=== PATIENT | female | born 1940 | race Hispanic/Latino ===

== ENCOUNTER 2019-06-04 09:04 | Outpatient (CLI) | payer MEDICARE ==
--- NOTE | 2019-06-04 15:09 | Mammography Report ---
BONE DEXA CLINICAL: Postmenopausal. COMPARISON: 06/01/2012 TECHNIQUE: 2 site bone DEXA performed on an Hologic scanner. FINDINGS: The average BMD of the lumbar spine L1-L4 is 1.064g/cm squared with a T score of +0.2 and a Z score o f +2.8. This compares to 1.004g/cm squared on the last exam and represents a +5.9 percent change from the [previous baseline]. The average BMD of the left hip is 0.763 g/cm squared with a T score of -1.5and a Z score of +0.5. Th is compares to 0.807 g/cm squared on the last exam and represents a -5.5 percent change from the [pre vious baseline]. IMPRESSION: 1. WHO classification: Normal with average fracture risk based on spine measurements. 2. WHO classification Osteopenia with increased fracture risk based on left hip measurements. RECOMMENDATION: Clinical correlation and routine screening. Definitions: BMD equal bone mineral density T score = BMD related to peak bone mass of young adult ([place] expressed an standard deviation) Z score = age-matched BMD expressed in SD World health organization (WHO) diagnostic criteria Normal T score greater than equal to 1 standard deviation Osteopenia T score between -1 and -2.4 standard deviation Osteoporosis T score -2.5 standard deviation or below. Note: BMD is not the only risk factor for fracture; also consider factors such as the patient's age, risk of falling, previous osteoporotic fracture, family history of osteoporotic fractures, current sm oker and low body weight. Z scores are not calculated if greater than 80 years of age. Signer Name: Rocky Snowden MD Signed: 06/04/2019 3:05 PM Workstation Name: [id number]
== END 2019-06-04 09:05 | disposition home or self-care (01) ==
LOC: MAMMO 09:04
PROVIDERS: ATTEND Family Medicine
DX: M85.88 Other specified disorders of bone density and structure, other site (principal); Z78.0 Asymptomatic menopausal state
CPT/HCPCS: 77080

== ENCOUNTER 2021-05-31 06:39 | Day surgery (SDC) | payer MEDICARE ==
[2021-05-31 07:18] LABS: Basophils % (Auto) 0.2 % (0.0-1.8); Eosinophils # (Auto) 0.2 K/mm3 (0.0-0.4); Eosinophils % (Auto) 2.8 % (0.0-4.3); Hematocrit 38.5 % (30.3-42.9); Hemoglobin 13.3 gm/dl (10.1-14.3); Lymphocytes # (Auto) 1.8 K/mm3 (1.2-5.4); Lymphocytes % (Auto) 29.4 % (13.4-35.0); Mean Corpuscular HGB Conc 35 % (30-34); Mean Corpuscular Volume 95 fl (79-97); Monocytes # (Auto) 0.5 K/mm3 (0.0-0.8); Monocytes % (Auto) 7.2 % (0.0-7.3); Platelet Count 215 K/mm3 (140-440); Red Blood Count 4.07 M/mm3 (3.65-5.03); Red Cell Distribution Width 13.6 % (13.2-15.2)
[2021-05-31 07:29] LABS: INR 0.91 (0.87-1.13)
[2021-05-31] MEDS ORDERED: ASPIRIN EC 325 MG TAB PO SCH (07:30)
[2021-05-31 07:31] LABS: Blood Urea Nitrogen 15 mg/dL (7-17); Calcium 10.6 mg/dL (8.4-10.2); Hemolysis Index 1
[2021-05-31 07:34] LABS: BUN/Creatinine Ratio 21
[2021-05-31] MEDS ORDERED: SODIUM CHLORIDE 0.9% 500 ML 500 ML IV SCH (08:00)
[2021-05-31] MEDS ORDERED: HEPARIN 10,000 UNITS/10 ML VIAL ONE (08:11)
[2021-05-31] MEDS ORDERED: MIDAZOLAM 2 MG/2 ML INJ ONE (08:11)
[2021-05-31] MEDS ORDERED: HEPARIN/NS 5000 UNIT/500ML 1,000 ML IR ONE (08:11)
[2021-05-31] MEDS ORDERED: fentaNYL 100 MCG/2 ML INJ ONE (08:12)
[2021-05-31] MEDS ORDERED: NITROGLYCERIN SYRINGE 3 ML ONE (08:12)
[2021-05-31] MEDS ORDERED: VERAPAMIL 5 MG/2 ML INJ ONE (08:12)
[2021-05-31] MEDS ORDERED: methylPREDNISolone Sod Succinate 125 MG/2 ML INJ IV SCH (08:30)
[2021-05-31] MEDS ORDERED: diphenhydrAMINE 50 MG/ML VIAL IV SCH (08:30)
[2021-05-31] MEDS ORDERED: FAMOTIDINE 20 MG/2 ML INJ IV SCH (08:30)
[2021-05-31] MEDS: LIDOCAINE (2%) 20 MG/1 ML VIAL 20 ML MDV INFILTRATI ONE ×2 (08:47→08:51)
[2021-05-31] MEDS ORDERED: LIDOCAINE (2%) 20 MG/1 ML VIAL 20 ML MDV INFILTRATI ONE (08:57)
--- NOTE | 2021-05-31 09:00 | Short Stay Summary ---
Short Stay Documentation Date of service: 05/31/21 - History Principal diagnosis: Chest Pain H&P: obtained from office Past Medical History: hypertension, hyperlipidemia, hypothyroidism, other (severe s/p TAVR) Past Surgical History: valve replacement (TAVR) Social history: no smoking, no alcohol abuse - Allergies and Medications Current Medications: Allergies shellfish derived Allergy (Severe, Verified 05/31/21 07:03) Swelling Penicillins Allergy (Intermediate, Verified 05/31/21 07:03) Rash Home Medications Medication Instructions Recorded Confirmed Last Taken Type Ascorbic Acid/Ascorbate Sodium 1 tab PO DAILY 05/31/21 05/31/21 05/30/21 History [Vit C-Inga Hips 500 mg Chew Tb] 1 tab Aspirin EC [Halfprin EC] 81 mg PO DAILY 05/31/21 05/31/21 05/30/21 History 81 mg Calcium Citrate/Vitamin D3 1 tab PO DAILY 05/31/21 05/31/21 05/30/21 History [Calcium Citrate - Vit D Tablet] 1 tab Levothyroxine [Synthroid] 75 mcg PO DAILY 05/31/21 05/31/21 05/30/21 History 75 mcg Lisinopril [Zestril] 5 mg PO DAILY 05/31/21 05/31/21 05/31/21 06:30 History 5 mg Loratadine [Claritin] 10 mg PO PRN PRN 05/31/21 05/31/21 Unknown History Meclizine [Antivert] 12.5 mg PO TID 05/31/21 05/31/21 05/30/21 History 12.5mg Metoprolol Xl [Metoprolol 50 mg PO DAILY 05/31/21 05/31/21 05/31/21 06:30 History SUCCINATE ER TAB] 50 mg Multivit-Min/FA/Lycopen/Lutein 1 tab PO DAILY 05/31/21 05/31/21 05/30/21 History [Centrum Silver Tablet] 1 tab Omeprazole 40 mg PO DAILY 05/31/21 05/31/21 05/30/21 History 40 mg Polyethylene Glycol 400 [Blink 1 drop INTRAOCULA BID 05/31/21 05/31/21 05/30/21 History Tears] 1 drop Simvastatin 80 mg PO HS 05/31/21 05/31/21 05/30/21 History 80 mg Ubidecarenone [Coq-10] 300 mg PO DAILY 05/31/21 05/31/21 05/30/21 History 300 mg Active Medications Aspirin (Aspirin Ec 325 Mg Tab) 325 mg PO ONCE ODALIS Stop: 05/31/21 17:00 Last Admin: 05/31/21 07:25 Dose: 325 mg Documented by: Diphenhydramine HCl (Diphenhydramine 50 Mg/Ml Vial) 25 mg IV ONCE ODALIS Stop: 05/31/21 11:00 Last Admin: 05/31/21 08:25 Dose: 25 mg Documented by: Famotidine (Famotidine 20 Mg/2 Ml Inj) 20 mg IV ONCE ODALIS Stop: 05/31/21 13:00 Last Admin: 05/31/21 08:26 Dose: 20 mg Documented by: Sodium Chloride (Nacl 0.9% 500 Ml) 500 mls @ 50 mls/hr IV DIRECT ODALIS Stop: 05/31/21 17:59 Last Admin: 05/31/21 07:27 Dose: 50 mls/hr Documented by: Methylprednisolone Sodium Succinate (Methylprednisolone Sod Succinate 125 Mg/2 Ml Inj) 125 mg IV ONCE ODALIS Stop: 05/31/21 11:00 Last Admin: 05/31/21 08:25 Dose: 125 mg Documented by: - Physical exam General appearance: no acute distress Integumentary: no rash, other (Groin site - clean/dry/intact, no evidence of bleeding or hematoma) HEENT: Atraumatic, EOMI Lungs: Clear to auscultation Heart: Normal S1, Normal S2, No murmurs Gastrointestinal: normal Extremities: pulses intact, No edema Neurological: Normal speech, Normal tone, Sensation intact - Brief post op/procedure progress note Date of procedure: 05/31/21 Pre-op diagnosis: Chest Pain Post-op diagnosis: same Surgeon: ALVARADO HARTLEY Estimated blood loss: minimal Pathology: none Condition: stable - Hospital course Hospital course: Pt presented for elective LHC, which revealed no evidence of significant epicardial coronary disease. Pt tolerated well and is currently stable. Will add Ranexa 500mg BID to home regimen. Follow-up with Dr. Yeni Hartley in 1-2 weeks ([phone]). - Disposition Condition at discharge: Good Disposition: 01 HOME / SELF CARE / HOMELESS - Discharge Diagnoses (1) Microvascular angina Status: Chronic Short Stay Discharge Plan Activity: advance as tolerated Diet: low fat, low cholesterol, low salt Wound: per your surgeon's advice Follow up with: ALVARADO HARTLEY MD [Staff Physician] - 14 Days DINA RO MD [Primary Care Provider] - 7 Days (Follow-up with Dr. Yeni Hartley on 07/23/2021 @ 3:30pm ([phone]). ) Prescriptions: Ranolazine ER [Ranexa ER] 500 mg PO BID #60 tablet
--- NOTE | 2021-05-31 09:30 | Cardiac Catherization Report ---
DATE OF PROCEDURE: 05/31/2021 REFERRING PHYSICIAN: Roger Rivera MD PROCEDURE: Left heart catheterization with coronary angiography. INDICATION FOR PROCEDURE: The patient is a very pleasant 80-year-old female, well known to me with history of TAVR, presents with recurrent chest pain, abnormal stress test, referred for left heart catheterization. Risks, benefits, potential alternatives explained at length prior to obtaining informed consent. PROCEDURE IN DETAIL: The patient was brought to the electroplating laborer in a postabsorptive state, prepped in sterile fashion. We were not able to access the right wrist. We used the right groin. A 5 Mongolian sheath placed with modified Seldinger technique after anesthetized with lidocaine. A JL3.5 catheter used to engage the left main. No dampening or ventricularization. Cineangiography performed in multiple projections. JR4 catheter used to engage the right coronary. No dampening or ventricularization. Cineangiography performed in all projections. I did not cross the aortic valve due to presence of TAVR and recent echocardiogram revealing normal bioprosthetic aortic valve performance. I directly supervised the administration of moderate sedation with fentanyl and Versed from 8:40 a.m. to 9:10 a.m. No immediate complications identified. Moderate sedation. DATA: Aortic pressure is 148/70. The patient remained in normal sinus rhythm throughout the procedure. CORONARY ANATOMY: Right dominant system. Right coronary is a moderate-sized vessel, courses AV groove, distally bifurcates in the posterior and posterolateral branches. No discrete stenoses noted. Left main without significant disease, bifurcates into left anterior descending and left circumflex. LAD is a moderate-sized vessel, courses anterior intraventricular groove, wraps around the apex, no significant disease. Left circumflex, moderate-sized vessel, courses AV groove. No significant disease. Scattered luminal irregularities throughout, but no obstructive disease identified. CONCLUSIONS: 1. No angiographic evidence of significant epicardial coronary disease in this right dominant system. 2. Mild systemic arterial hypertension. At this point, we will continue optimal medical therapy, add Ranexa for questionable microvascular angina. Discussed with her daughter, Lissett, via telephone. Stable overall cardiac status. Follow up with me in the office. Standard groin care. TID: [id number] RECEIPT: [id number] SBM/CECILIA
[2021-05-31] MEDS ORDERED: traMADol 50 MG TAB PO PRN (10:00)
[2021-05-31] MEDS ORDERED: HYDROcodone/ACETAMINOPHEN 5-325 MG TAB PO PRN (10:00)
[2021-05-31 13:30] VITALS: BP 152/78
[2021-05-31] MEDS ORDERED: RANOLAZINE ER 500 MG TAB 12HR PO SCH (22:00)
--- NOTE | 2021-06-01 10:00 | Electrocardiograph Report ---
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
== END 2021-05-31 14:11 | disposition home or self-care (01) ==
LOC: CATHLABREC 06:39
PROVIDERS: ATTEND Internal Medicine
DX: R07.9 Chest pain, unspecified (principal); I35.0 Nonrheumatic aortic (valve) stenosis; I11.0 Hypertensive heart disease with heart failure; I50.9 Heart failure, unspecified; E78.00 Pure hypercholesterolemia, unspecified; E03.9 Hypothyroidism, unspecified; M19.90 Unspecified osteoarthritis, unspecified site; Z95.2 Presence of prosthetic heart valve; Z79.82 Long term (current) use of aspirin; Z79.899 Other long term (current) drug therapy; Z88.0 Allergy status to penicillin; Z91.013 Allergy to seafood; Z98.890 Other specified postprocedural states
CPT/HCPCS: 36415; 80048; 85025; 85610; 85730; 93005; 93454; 96374; 96375; 99156; 99157; C1894; J1200; J1644; J2250; J2930; J3010; J7040; Q9967

== ENCOUNTER 2021-06-07 10:26 | Outpatient (CLI) | payer MEDICARE ==
--- NOTE | 2021-06-07 12:03 | Mammography Report ---
DEXA BONE DENSITY SCAN INDICATION / CLINICAL INFORMATION: OSTEOPENIA OF LEFT HIP. 80 years Female COMPARISON: DEXA scan dated 06/04/2019. LUMBAR SPINE, L1-L4: - Bone mineral density (BMD) = 1.053 g/cm2. - T-score = 0.1 - Z-score = 2.8 Change (%) since most recent prior (if available): -1.0 LEFT HIP, NECK : - Bone mineral density (BMD) = 0.628 g/cm2. - T-score = -2.0 - Z-score = 0.3 Change (%) since most recent prior (if available): +1.9 10-YEAR FRACTURE RISK (FRAX) (%) based on LEFT FEMUR - Major Osteoporotic Fracture / Hip Fracture: 15% / 4.2% IMPRESSION: 1. WHO Classification: Osteopenia. Fracture Risk: Increased. Note: 10-Year Fracture Risk (FRAX) not reported. This DEXA unit lacks FRAX functionality. BMD Reporting Guidelines (ISCD, 2015) BMD Reporting in Postmenopausal Women and in Men Age 50 and Older - T-scores are preferred. - The WHO densitometric classification is applicable. BMD Reporting in Females Prior to Menopause and in Males Younger Than Age 50 - Z-scores, not T-scores, are preferred. This is particularly important in children. - A Z-score of -2.0 or lower is defined as below the expected range for age, and a Z-score above -2.0 is within the expected range for age. - Osteoporosis cannot be diagnosed in men under age 50 on the basis of BMD alone. - The WHO diagnostic criteria may be applied to women in the menopausal transition. http://www.iscd.org/official-positions/8839-aozt-ikvekajz-positions-adult/ Signer Name: Mendoza Fitch MD Signed: 06/07/2021 11:59 AM Workstation Name: [id number]
== END 2021-06-07 10:27 | disposition home or self-care (01) ==
LOC: MAMMO 10:26
PROVIDERS: ATTEND Family Medicine
DX: Z13.820 Encounter for screening for osteoporosis (principal); M85.852 Other specified disorders of bone density and structure, left thigh
CPT/HCPCS: 77080